=== PATIENT | male | born 1940 | race African-American/Black ===

== ENCOUNTER → 2020-07-22 | Outpatient (CLI) | payer OTHER, BC ==
[~2020-07-22] MED LIST: ACTOS15 MG PO; ADULT LOW DOSE81 MG PO; B-100 COMPLEX1 EAC1 PO; B-COMPLEX 100400 MC1 PO; COUMADIN 5 MG TA5 M1 PO; COUMADIN7.5 MG PO; FISH OIL 1,0001 EAC5 PO; FISHOIL PO; FUROSEMIDE PO; GARLIC OIL1 EAC1 PO; GLUCOPHAGE XR500 MG PO; GLYSET50 MG PO; IRON PO; LASIX 40 MG TAB40 M1 PO; LISINOPRIL40 MG PO; MULTAQ400 MG PO; MULTIVITAMINS PO; ODORLESS GARLI500 MG PO; SORINE 80 MG TA80 M1 PO; TOPROL XL50 MG PO; VITAMINC500 PO; VITCB500GO PO; ZOCOR40 MG PO
== END ==
LOC: RAD 15:40
PROVIDERS: ATTEND Internal Medicine
DX: J98.4 Other disorders of lung (principal); I51.7 Cardiomegaly; I50.41 Acute combined systolic (congestive) and diastolic (congestive) heart failure; I71.2 Thoracic aortic aneurysm, without rupture

== ENCOUNTER 2021-01-21 14:00 | Inpatient (IN) | payer OTHER, BC ==
[~2021-01-21] VITALS: Ht 177.8 cm; Wt 124.2 kg
--- NOTE | ~2021-01-21 | HC ---
[facility] [place] [address] CONSULTATION Name: DIMPLE ORTIZ Room #: 351-P ADM IN M.R.#: [id number] Admission: 01/21/21 Attend Phys: Trent Solomon MD Discharge: Date of : 39 Report #: [id number] THIS REPORT FOR: cc: [place] MD, Stanley P. MD Stephens, Thad A. MD ~ DATE OF SERVICE: 01/22/2021 WOUND CARE CONSULTATION PERSONAL PHYSICIAN: Dr. [place]. CHIEF COMPLAINT: Leg edema. HISTORY OF PRESENT ILLNESS: This is an 80-year-old black male who was admitted for congestive heart failure, who was noted to have significant lower extremity edema on admission. The patient states that the edema started approximately 1 month ago. We have been asked to see the patient to assist with control of the edema. The patient denies any associated open wounds. The patient denies any other recent illnesses or concerns. PAST MEDICAL HISTORY: Significant for atrial flutter, status post ablation for congestive heart failure, hyperlipidemia, hypothyroidism, coronary artery disease, type 2 diabetes, coronary artery bypass grafting x 5 back in 2001. Cataract surgery. CURRENT MEDICATIONS: Multiple, I reviewed the patient's medication list. DRUG ALLERGIES: None. SOCIAL HISTORY: The patient does not smoke or drink alcohol. FAMILY HISTORY: Not pertinent to current medical condition. REVIEW OF SYSTEMS: CONSTITUTIONAL: The patient denies fevers or chills. NEUROLOGIC: The patient has mild overall weakness, but no isolated weakness in arms or legs. EYES: No complaints. ENT: No complaints. CARDIAC: The patient has significant lower extremity edema, but no chest pain or palpitations. RESPIRATORY: The patient has dyspnea on exertion and orthopnea with slight cough. GASTROINTESTINAL: The patient denies nausea, vomiting, or abdominal pain. [facility] [address] [place] [address] CONSULTATION Name: DIMPLE ORTIZ Room #: 351-P [facility] IN [facility]#: [id number] Admission: 01/21/21 Attend Phys: Trent Solomon MD Discharge: Date of : 39 Report #: [id number] GENITOURINARY: The patient denies urgency or frequency. MUSCULOSKELETAL: No complaints. SKIN: The patient has no open ulcerations. PHYSICAL EXAMINATION: VITAL SIGNS: Temperature 36.6, pulse 48, respirations 18, BP 105/40. GENERAL: This is a pleasant black male who is in no obvious distress. HEENT: Normocephalic, atraumatic. Mucous membranes are somewhat dry. Pupils are round. Sclerae white. NECK: Supple, no obvious JVD. LUNGS: Diminished breath sounds heard throughout. HEART: Regular. ABDOMEN: Obese, soft, nontender. EXTREMITIES: The patient has 3+ edema bilateral lower extremities, the skin is otherwise intact. There is mild stasis dermatitis changes noted. There is no increased erythema, warmth or tenderness. No signs of cellulitis. Distal pulses are 1+. Bilateral heels are intact. NEUROLOGIC: Cranial nerves 2-12 grossly intact. Motor and sensory grossly intact. LABORATORY DATA: White count 4.7, hemoglobin 10.0, BUN 34, creatinine 3.3, albumin 3.0. IMPRESSION: 1. Chronic lower extremity edema consistent with venous insufficiency and congestive heart failure. 2. Acute exacerbation of congestive heart failure. 3. Diabetes mellitus. 4. Coronary artery disease. 5. Protein-calorie malnutrition - moderate, albumin 3.0. 6. Generalized debility. PLAN: We will start ___Tubigrip to the bilateral lower extremities. We have ordered arterial Dopplers to evaluate for underlying arterial disease given the patient has a history of coronary artery disease and bypass surgery. We will make sure we maximize the patient's oral protein supplementation for healing. We will utilize physical, occupational therapy for strengthening. We will continue all other current medications. We will continue to follow the patient. I appreciate the ability to consult. By: 1520 54 Paramjit Castañeda MD /nt
[2021-01-21 14:03] VITALS: BP 171/50
[2021-01-21] MEDS ORDERED: LEVO-T50 MCG PO (14:12)
[2021-01-21] MEDS ORDERED: ALLEGRA ALLERG180 MG PO (14:12)
[2021-01-21] MEDS ORDERED: PACERONE200 MG PO (14:13)
[2021-01-21] MEDS ORDERED: FUROSEMIDE 80 M80 M1 PO (14:13)
[2021-01-21] MEDS ORDERED: LIPITOR80 MG PO (14:13)
[2021-01-21] MEDS ORDERED: JANTOVEN2.5 MG PO (14:14)
[2021-01-21] MEDS ORDERED: LISINOPRIL5 MG PO (14:14)
[2021-01-21 14:38] LABS: ABSOLUTE NEUTROPHILS 4.1 thou/uL (1.4-8.2); BASOPHILS 0.8 % (0.0-2.0); EOSINOPHILS 4.3 % (0.0-3.0); HEMATOCRIT 34.3 % (42.0-52.0); LYMPHOCYTES 15.9 % (24.0-44.0); MCH 32.4 pg (26.0-34.0); MCHC 31.9 g/dL (28.0-37.0); MCV 101.3 fL (80.0-100.0); MONOCYTES 11.9 % (1.0-8.0); PLATELET COUNT 171 thou/uL (150-400); POLYS 67.1 % (36.0-66.0); RBC 3.39 mil/uL (4.50-6.00); RDW 14.5 % (10.5-14.5)
[2021-01-21 16:25] LABS: CALCIUM 8.8 mg/dL (8.5-10.1); CREATININE 3.3 mg/dL (0.7-1.3); POTASSIUM 4.2 mmol/L (3.5-5.1)
[2021-01-21 16:31] LABS: ALBUMIN 3.1 g/dL (3.4-5.0); TOTAL BILIRUBIN 0.5 mg/dL (0.2-1.0); TOTAL PROTEIN 6.8 g/dL (6.4-8.2)
[2021-01-21 17:11] VITALS: BP 171/50
--- NOTE | 2021-01-21 17:15 | EKG ---
[address] [place] [address] ELECTROCARDIOGRAM REPORT Name: DIMPLE ORTIZ Room #: [facility]#: [id number] Admission: 01/21/21 Attend Phys: Discharge: Date of : 38 Report #: [id number] [facility] Test Date: 2021-01-21 Test Time: 15:33:10 Pat Name: DIMPLE ORTIZ Department: Room: Gender: M Cook Seafood: MAT : 1940 Requested By: Alvaro Dorsey Order Number: [id number] MD: Hardeep Fraser Measurements Intervals [place] Rate: 69 P: 0 SD: 228 QRS: 50 QRSD: 102 T: 58 QT: 479 QTc: 514 Interpretive Statements Sinus rhythm Prolonged SD interval Borderline T wave abnormalities Prolonged QT interval Compared to ECG 05/22/2010 06:29:23 First degree AV block now present T-wave abnormality now present Prolonged QT interval now present Atrial premature complex(es) no longer present Electronically Signed On 01-21-2021 17:15:04 CDT by Hardeep Fraser [email or web address] <ELECTRONICALLY SIGNED> By: Hardeep Fraser MD, FAC 01/21/21 1715 1533 1533 Hardeep Fraser MD, [facility] /EPI
[2021-01-21 17:52] LABS: INR 3.7; PROTIME 38.3 Seconds (9.3-11.4)
[2021-01-21 18:12] LABS: FOLIC ACID 12.9 ng/mL (8.6-58.9)
[2021-01-21 18:15] LABS: % SATURATION 14 % (20-39); IRON 39 ug/dL (65-175); TIBC 279 ug/dL (250-450)
[2021-01-21 19:35] VITALS: BP 152/56
[2021-01-21 19:45] VITALS: BP 161/54
[2021-01-22 04:35] VITALS: BP 105/40
[2021-01-22 05:35] LABS: ABSOLUTE NEUTROPHILS 2.8 thou/uL (1.4-8.2); BASOPHILS 1.1 % (0.0-2.0); EOSINOPHILS 7.7 % (0.0-3.0); HEMATOCRIT 30.6 % (42.0-52.0); LYMPHOCYTES 20.5 % (24.0-44.0); MCHC 32.6 g/dL (28.0-37.0); MCV 101.2 fL (80.0-100.0); MONOCYTES 11.7 % (1.0-8.0); PLATELET COUNT 147 thou/uL (150-400); RBC 3.03 mil/uL (4.50-6.00); RDW 14.3 % (10.5-14.5); WBC 4.7 thou/uL (4.0-11.0)
[2021-01-22 05:51] LABS: CALCIUM 8.6 mg/dL (8.5-10.1); CREATININE 3.3 mg/dL (0.7-1.3); MAGNESIUM 2.2 mg/dL (1.8-2.4); PHOSPHORUS 3.7 mg/dL (2.5-4.9); POTASSIUM 3.9 mmol/L (3.5-5.1)
[2021-01-22 05:55] LABS: INR 3.8; PROTIME 38.5 Seconds (9.3-11.4)
--- NOTE | 2021-01-22 07:38 | NUR ---
PT ARRIVED TO UNIT APPROX 1944, ADMISSION AND ASSESSMENT COMPLETED. PT A&Ox4, PLEASANT BUT EASILY TEARFUL REPORTING HIS TWO YEARS AGO AND HE ONLY HAS HIS SON IN HIS LIFE. EASILY SOB AND FATIGUED WITH MINIMAL EXERTION, SATS WELL ON RA. HAS BEEN AFIB HR 50-60 OVERNIGHT. UTILIZING URINAL OVERNIGHT. NO OTHER CONCERNS, SHIFT REPORT GIVEN 0700.
--- NOTE | 2021-01-22 12:08 | 2DMMODE ---
[facility] [place] [address] 2 D/M-MODE ECHOCARDIOGRAM Name: DIMPLE ORTIZ Room #: 351-P ADM IN M.R.#: [id number] Admission: 01/21/21 Attend Phys: Trent Solomon MD Discharge: Date of : 39 Report #: [id number] THIS REPORT FOR: cc: [place] MD, Stanley P. MD Lammoglia, Francisco J. MD ~ APPROVED REPORT Study performed: 01/22/2021 11:23:44 EXAM: Comprehensive 2D, Doppler, and color-flow Echocardiogram Patient Location: Bedside Room #: [facility] Status: routine BSA: 2.36 HR: 60 bpm BP: 105/40 mmHg Rhythm: Sinus arrhythmia and PVCs Other Information Study Quality: Fair/not all measurements taken/foreshortened apicals Technically limited study due to morbid obesity. Indications Short of breath, cough, edema, CHF. Hx: CABG, CHF, PAF, HTN, COVID-19 (04/2020). 2D Dimensions IVSd: 10.87 (7-11mm) LVOT Diam: 21.30 (18-24mm) LVDd: 52.12 mm PWd: 10.68 (7-11mm) Ascending Ao: 30.25 (22-36mm) LVDs: 35.62 (25-40mm) Left Atrium: 44.59 (27-40mm) Aortic Root: 32.60 mm Aortic Valve AoV Peak Armond.: 1.22 m/s AO Peak Gr.: 5.96 mmHg LVOT Max P.44 mmHg LVOT Max V: 0.93 m/s DAMIEN Vmax: 2.70 cm2 Mitral Valve E/A Ratio: 1.[address] [facility] [address] [place] [address] 2 D/M-MODE ECHOCARDIOGRAM Name: DIMPLE ORTIZ Room #: 351-[facility] IN [facility].#: [id number] Admission: 01/21/21 Attend Phys: Trent Solomon MD Discharge: Date of : 39 Report #: [id number] MV Decel. Time: 239.57 ms MV E Max Armond.: 1.09 m/s MV A Armond.: 0.63 m/s MV PHT: 69.48 ms Pulmonary Valve PV Peak Armond.: 0.94 m/s PV Peak Gr.: 3.53 mmHg Pulmonary Vein P Vein S: 0.33 m/s P Vein D: 0.72 m/s P Vein S/D Ratio: 0.46 Tricuspid Valve TR Peak Armond.: 3.22 m/s RAP Estimate: 10.00 mmHg TR Peak Gr.: 42.00 mmHg PA Pressure: 52.00 mmHg Left Ventricle The left ventricle is normal size. There is normal LV segmental wall motion. There is normal left ventricular wall thickness. Left ventricular systolic function is normal. LVEF is 60-65%. Moderate diastolic dysfunction is present (pseudonormal filling). Right Ventricle The right ventricle is normal size. The right ventricular systolic function is normal. Atria Biatrial enlargement. Aortic Valve Aortic valve leaflets are mildly thickened and calcified. No aortic regurgitation is present. There is no aortic valvular stenosis. Mitral Valve The mitral valve is normal in structure. Mild mitral annular calcification. Moderate mitral regurgitation. Tricuspid Valve The tricuspid valve is normal in structure. Moderate to severe tricuspid regurgitation. Etimated PAP is 50-55mmHG. Pulmonic Valve Pulmonic valve is not well visualized. Trace pulmonic [facility] [address] [place] [address] 2 D/M-MODE ECHOCARDIOGRAM Name: DIMPLE ORTIZ Room #: 351-P [facility] IN .R.#: [id number] Admission: 01/21/21 Attend Phys: Trent Solomon MD Discharge: Date of : 39 Report #: [id number] regurgitation. Great Vessels The aortic root is normal in size. The ascending aorta is normal in size. IVC is dilated and collapses <50% with inspiration. Pericardium There is no pericardial effusion. <Conclusion> The left ventricle is normal size. Left ventricular systolic function is normal. LVEF is 60-65%. Biatrial enlargement. Aortic valve leaflets are mildly thickened and calcified. No aortic regurgitation is present. The mitral valve is normal in structure. Mild mitral annular calcification. Moderate mitral regurgitation. The tricuspid valve is normal in structure. Moderate to severe tricuspid regurgitation. Etimated PAP is 50-55mmHG. Pulmonic valve is not well visualized. Trace pulmonic regurgitation. There is no pericardial effusion. <ELECTRONICALLY SIGNED> By: Pérez Palomino MD 01/22/21 1208 120 120 Pérez Palomino MD /INF
--- NOTE | 2021-01-22 13:08 | EKG ---
[address] [place] [address] ELECTROCARDIOGRAM REPORT Name: DIMPLE ORTIZ Room #: 351-P ADM IN M.R.#: [id number] Admission: 01/21/21 Attend Phys: Trent Solomon MD Discharge: Date of : 39 Report #: [id number] [facility] Test Date: 2021-01-22 Test Time: 09:03:02 Pat Name: DIMPLE ORTIZ Department: Room: 351 P Gender: M Harvester Operator: JENNIFER : 1940 Requested By: Precious Campbell Order Number: [id number] MD: Hardeep Fraser Measurements Intervals [place] Rate: 59 P: -60 [place]: 226 QRS: 54 QRSD: 116 T: 69 QT: 556 QTc: 551 Interpretive Statements Sinus or ectopic atrial rhythm Sinus pause Prolonged [place] interval Nonspecific intraventricular conduction delay Compared to ECG 01/21/2021 15:33:10 Ectopic atrial rhythm now present Sinus pause or arrest now present Intraventricular conduction delay now present Sinus rhythm no longer present T-wave abnormality no longer present Prolonged QT interval no longer present Electronically Signed On 01-22-2021 13:08:42 CDT by Hardeep Fraser [email or web address] <ELECTRONICALLY SIGNED> By: Hardeep Fraser MD, FACC 01/22/21 1308 0903 0903 Hardeep Fraser MD, FAC /EPI
[2021-01-22 15:15] VITALS: BP 127/57
[2021-01-22 15:41] LABS: URINE BILIRUBIN NEGATIVE (Negative); URINE BLOOD NEGATIVE (Negative); URINE CLARITY CLEAR; URINE COLOR YELLOW; URINE GLUCOSE-RANDOM* NEGATIVE (Negative); URINE KETONES NEGATIVE (Negative); URINE LEUKOCYTES NEGATIVE (Negative); URINE NITRITE NEGATIVE (Negative); URINE PROTEIN (DIPSTICK) NEGATIVE (Negative); URINE SPECIFIC GRAVITY 1.015 (1.005-1.035); URINE UROBILINOGEN 0.2 E.U./dl (0.2-1.0)
[2021-01-22 15:49] LABS: PROT/CREAT RATIO 0.3; URINE CREATININE-RANDOM* 41.9 mg/dL; URINE PROTEIN-RANDOM* 13.7 mg/dL (<11.9)
--- NOTE | 2021-01-22 16:41 | NUR ---
INITIAL ASSESSMENT: Received consult for discharge planning. BECKY reviewed chart and spoke with nursing and attending physician. Pt was admitted from home due to CHF. Cardiology consulted. Pt with hx of COVID in May of 2020. No weekend discharge planned. BECKY met with pt and his son, Fabricio, at bedside. Introduced role of SW. Pt is alert/orientated x 4. Pt reports he lives at home alone. Prior to admission, pt was independent with ADLs. Pt has a walker to use. Pt has 1 step to enter the home. No steps inside. Stair glide in place to go down to the basement. Pt's son checks on pt daily. No hx of HH services or post-acute placement. Pt's PCP is Dr. [place]. Pt does have a nebulizer at home for breathing treatments. Pt and son are agreeable with HH at time of discharge if needed. PT/OT are working with pt. Pt had first COVID vaccine on 01/05. Pt's second shot is scheduled for . 01/25 at 1200. BECKY is following to assist as needed with discharge planning.
--- NOTE | 2021-01-22 19:28 | NUR ---
ASSUMED PATIENT CARE AT 0700. A/O X4. UP AD LIANNA IN ROOM. 2+ EDEMA BLE. PATIENT HAS DRY COUGH. WILL KEP MONITOR.
[2021-01-22 20:07] VITALS: BP 142/64
[2021-01-23 04:32] VITALS: BP 125/56
[2021-01-23 04:52] LABS: HEMATOCRIT 33.7 % (42.0-52.0); HEMOGLOBIN 10.8 gm/dL (14.0-18.0); MCH 32.4 pg (26.0-34.0); MCV 101.3 fL (80.0-100.0); RBC 3.33 mil/uL (4.50-6.00); RDW 14.8 % (10.5-14.5); WBC 3.8 thou/uL (4.0-11.0)
[2021-01-23 05:11] LABS: INR 3.2; PROTIME 32.6 Seconds (9.3-11.4)
[2021-01-23 05:46] LABS: CALCIUM 8.9 mg/dL (8.5-10.1); CREATININE 3.5 mg/dL (0.7-1.3); POTASSIUM 4.5 mmol/L (3.5-5.1)
[2021-01-23 07:51] VITALS: BP 120/53
[2021-01-23 11:50] LABS: ALBUMIN 3.2 g/dL (3.4-5.0); DIRECT BILIRUBIN 0.2 mg/dL (<0.1-0.2); TOTAL BILIRUBIN 0.6 mg/dL (0.2-1.0); TOTAL PROTEIN 7.2 g/dL (6.4-8.2)
--- NOTE | 2021-01-23 18:32 | NUR ---
NO CHANGE ON THIS SHIFT. SLOWLY TOWARDS POC GOALS.
[2021-01-23 20:21] VITALS: BP 109/50
--- NOTE | 2021-01-24 02:49 | NUR ---
PT PROGRESSING TOWARDS D/C GOALS. VSS AFEBRILE. DENIED PAIN. COUGH MEDICINE GIVEN AND LOZENGE FOR NO PRODUCTIVE COUGH. REFUSED TO GO BACK TO BED . SAT UP IN CHAIR ALL NIGHT. ENCOURAGED TO KEEP FEET ELEVATED AND REPOSITION POSSIBLE IN CHAIR.
[2021-01-24 03:44] LABS: INR 3.3; PROTIME 34.1 Seconds (9.3-11.4)
[2021-01-24 04:40] VITALS: BP 127/60
[2021-01-24 06:06] LABS: HAV IgM AB (ANTI-HAV IgM) Negative (Negative); HEPATITIS B SURFACE AG Negative (Negative); HEPATITIS C VIRUS AB <0.1 (0.0-0.9)
[2021-01-24 07:54] LABS: ALBUMIN 3.2 g/dL (3.4-5.0); CALCIUM 8.7 mg/dL (8.5-10.1); CREATININE 3.7 mg/dL (0.7-1.3); PHOSPHORUS 3.9 mg/dL (2.6-4.7); POTASSIUM 4.7 mmol/L (3.5-5.1)
[2021-01-24 08:23] VITALS: BP 117/56
[2021-01-24 11:56] VITALS: BP 105/50
[2021-01-24 17:02] VITALS: BP 103/36
--- NOTE | 2021-01-24 18:03 | NUR ---
PATIENT RESTING ON CHAIR. GENERLIZED EDEMA. NOT TOWARDS POC GOALS.
[2021-01-24 19:30] VITALS: BP 102/46
--- NOTE | 2021-01-24 22:15 | NUR ---
PT UP IN LOUNGE CHAIR. GENERALIZED EDEMA, OBESE. PT IS SLOW TO SPEAK, BLUNTED AFFECT. BLE TUBIGRIP INTACT. PT CALLS FOR ASSISTANCE WITH AMBULATION. LUNGS WITH WHEEZES.
[2021-01-25 04:19] VITALS: BP 110/54
[2021-01-25 06:06] LABS: ALBUMIN 3.2 g/dL (3.4-5.0); CALCIUM 8.8 mg/dL (8.5-10.1); CREATININE 3.7 mg/dL (0.7-1.3); PHOSPHORUS 4.8 mg/dL (2.5-4.9); POTASSIUM 4.5 mmol/L (3.5-5.1)
[2021-01-25 06:07] LABS: INR 2.8; PROTIME 28.9 Seconds (9.3-11.4)
[2021-01-25 07:08] VITALS: BP 102/55
[2021-01-25 11:03] VITALS: BP 113/46
--- NOTE | 2021-01-25 13:14 | NUR ---
CARE ASSUMED AT 0700, PT ALERT AND ORIENTED X4, UP IN THE CHAIR. DENIES ANY NEEDS AT MOMENT. TUBIGRIP ON PT BLE. GENERLAIZED EDEMA. PT DENIES ANY NEEDS AT THE MOMENT. PT SON VISITING MERLY, WILL CONTINUE TO MONITOR
[2021-01-25 15:02] VITALS: BP 129/61
--- NOTE | 2021-01-25 15:41 | NUR ---
SW reviewed chart and spoke with nursing and attending physician. Pt is progressing towards goals for discharge. Pt is on IV steroids. Pt has second COVID vaccine scheduled for tomorrow at 1200 [address] [facility] [address] [id number]. Pt will most likely not be ready for discharge tomorrow. BECKY discussed with attending physician and administration. Pt is able to leave for vaccine and then will return after vaccine. Pt's family will provide transportation. Patient Pass Agreement document will need to be signed by pt/family. Pt will return directly to his hospital room upon return. BECKY met with pt and son at bedside to provide update and discuss. Both pt and son verbalized understanding and are agreeable with plan. BECKY is following to assist as needed with discharge planning.
[2021-01-25 19:06] VITALS: BP 122/56
--- NOTE | 2021-01-25 19:43 | NUR ---
PT SITITNG UP IN CHAIR, PT ALSO SLEEPS IN CHAIR. OBESE, LUNGS WITH WHEEZES, CONTINUED GENERALIZED AND BLE EDEMA. BLUNTED AFFECT. PT HAS ORDER TO LEAVE FOR VACCINE TOMORROW AND PT HAPPY, PLANS ON LEAVING AROUND 10AM. PT MONITORING OWN FLUID RESTRICTION. CALLS FOR ASSISTANC WITH AMBULATION USES WALKER.
[2021-01-26 04:02] VITALS: BP 113/55
[2021-01-26 05:42] LABS: INR 2.4; PROTIME 25.1 Seconds (9.3-11.4)
[2021-01-26 05:50] LABS: ALBUMIN 3.1 g/dL (3.4-5.0); CALCIUM 8.6 mg/dL (8.5-10.1); CREATININE 3.6 mg/dL (0.7-1.3); PHOSPHORUS 4.6 mg/dL (2.6-4.7); POTASSIUM 4.6 mmol/L (3.5-5.1)
[2021-01-26 07:07] VITALS: BP 144/56
--- NOTE | 2021-01-26 10:27 | NUR ---
Note Given: Y Facility List Provided:Y Facility Jihan: None chosen at this time Lisseth Thomason NP discussed BPCI with this pt 01/25/21
--- NOTE | 2021-01-26 11:28 | NUR ---
1040 PT SON HERE TO TAKE PT TO GET HIS 2ND COVID VACCINE SHOT, OUTSIDE THE HOSPITAL. APPROVED BY DR. ARVIZU. ORDERS IN.
[2021-01-26 12:26] VITALS: BP 118/42
--- NOTE | 2021-01-26 12:59 | NUR ---
SW reviewed chart and spoke with nursing and attending physician. Pt is medically stable to be released from the hospital for a couple of hours to go receive his second COVID vaccine. Form signed by pt and placed on chart. SW met with pt and son to discuss plan. Pt's son to provide transportation and pt will return to his hospital room. BECKY is following to assist as needed with discharge planning.
[2021-01-26 15:21] VITALS: BP 118/57
[2021-01-26 19:04] VITALS: BP 112/47
--- NOTE | 2021-01-26 22:41 | NUR ---
PT SITTING IN LOUNGE CHAIR. SON VISITING. DISCUSSED HIS OUTING FOR SECOND SHOT. PT NOT SOA WITH CONVERSATION, GOOD EYE CONTACT, BLUNTED AFFECT. OBESE, GENERALIZED EDEMA. PT HAD HS SNACK. TUBI AIRPLANE NAVIGATOR BLE INTACT.
[2021-01-27 04:08] VITALS: BP 110/57
[2021-01-27 08:45] VITALS: BP 118/50
[2021-01-27 10:17] LABS: ALBUMIN 3.1 g/dL (3.4-5.0); CALCIUM 8.4 mg/dL (8.5-10.1); CREATININE 3.8 mg/dL (0.7-1.3); PHOSPHORUS 5.4 mg/dL (2.6-4.7); POTASSIUM 4.4 mmol/L (3.5-5.1)
[2021-01-27 11:16] VITALS: BP 114/50
[2021-01-27 11:22] LABS: INR 2.4; PROTIME 25.5 Seconds (9.3-11.4)
[2021-01-27 12:15] LABS: HEMATOCRIT 34.6 % (42.0-52.0); HEMOGLOBIN 11.1 gm/dL (14.0-18.0)
--- NOTE | 2021-01-27 13:31 | NUR ---
PT UP IN CHAIR, PT ALERT AND ORIENTED X4. PT DENIES ANY CHEST PAIN, NAUSEA AND VOMITTING. PT STATED THERE WAS SOME BLOOD IN HIS STOOL, MADE DR. SOLORIO AWARE. NEW ORDERS IN. ASSESSMENT COPMPLETED. FALL PRECAUTIONS IN PLACE. WILL CONTINUE TO MONITOR
[2021-01-27 15:32] VITALS: BP 117/57
[2021-01-27 19:18] VITALS: BP 106/48
[2021-01-28 04:10] VITALS: BP 110/53
[2021-01-28 05:47] LABS: HEMATOCRIT 34.2 % (42.0-52.0); HEMOGLOBIN 10.9 gm/dL (14.0-18.0)
[2021-01-28 06:10] LABS: INR 2.9; PROTIME 29.9 Seconds (9.3-11.4)
--- NOTE | 2021-01-28 06:15 | NUR ---
PT NOTED TO BE IN AFIB. HEART RATE 40-50'S THROUGHOUT THE NIGHT. HS AMIODARONE AND PROPANOLOL HELD DUE TO LOW HEART RATE. WILL REASSESS WHEN NEXT DOSE DUE.
[2021-01-28 06:32] LABS: ALBUMIN 2.9 g/dL (3.4-5.0); CALCIUM 8.3 mg/dL (8.5-10.1); CREATININE 3.8 mg/dL (0.7-1.3); PHOSPHORUS 4.8 mg/dL (2.5-4.9); POTASSIUM 4.3 mmol/L (3.5-5.1)
[2021-01-28 07:40] VITALS: BP 105/58
--- NOTE | 2021-01-28 09:25 | NUR ---
BPCI LETTER LEFT WITH CHART, UNABLE TO SPEAK WITH PATIENT. NURSING AWARE THIS IS ON CHART FOR DISCHARGE.
--- NOTE | 2021-01-28 09:56 | NUR ---
Nutrition: pt admit w/ SOB, CHF exacerbation, CKD. Seen for LOS. PO intake fair/good, 50-90% of meals on 2 gm Na diet. Pt with hx DM, CABG, HLD, HTN, COVID. BG 70-254. Will add carb controlled to diet order. Negative fluid balance on torsemide. No weight since admission. Initial weight BMI 39, obesity class 2. RD completed low sodium education with pt due to comments he frequently eats convenience foods and does not cook. See education log for details. Low nutrition risk.
[2021-01-28] MEDS ORDERED: PROPRANOLOL 1010 MG PO (10:16)
[2021-01-28] MEDS ORDERED: GLUCOTROL5 MG PO (10:17)
[2021-01-28] MEDS ORDERED: ANUCORT-HC25 MG RECTAL (10:18)
[2021-01-28] MEDS ORDERED: MEDROL4 M1 PO (10:38)
[2021-01-28] MEDS ORDERED: JANTOVEN2.5 MG PO (10:38)
[2021-01-28 10:55] VITALS: BP 105/58
[2021-01-28] MEDS ORDERED: PRANDIN1 MG PO (11:05)
[2021-01-28] MEDS ORDERED: PRECOSE 25 MG25 M1 PO (11:05)
[2021-01-28] MEDS ORDERED: TORSEMIDE20 MG PO (11:06)
[2021-01-28 11:32] VITALS: BP 132/85
--- NOTE | 2021-01-28 11:33 | NUR ---
DISCHARGE NOTE: SW reviewed chart and spoke with nursing and attending physician. Pt is medically stable for discharge home today. Orders written for HH services. SW met with pt at bedside to discuss discharge. Pt is aware and in agreement with discharge plan. Options provided for HH agencies. No preference voiced. SW confirmed pt's home address and phone number. SW faxed referral and finalized discharge orders/summary to [facility]. Notified liaison of new referral. [facility] is able to accept pt on service. Contact info for HH placed in pt's discharge summary. Pt's son will provide transportation home. No additional SW needs identified at this time, but is available to assist should needs arise.
== END 2021-01-28 15:04 | disposition home health service (06) | DRG 682 ==
LOC: ER 14:00 → 3W 19:08 → EROBS 19:08 → 3W 19:41
PROVIDERS: Hospitalist; Internal Medicine; Internal Medicine Nephrology; Nurse Practitioner; Physician Assistant; ADMIT Hospitalist; ATTEND Hospitalist
DX: N17.0 Acute kidney failure with tubular necrosis (principal); I50.31 Acute diastolic (congestive) heart failure; E44.0 Moderate protein-calorie malnutrition; I48.92 Unspecified atrial flutter; J98.11 Atelectasis; I13.0 Hypertensive heart and chronic kidney disease with heart failure and stage 1 through stage 4 chronic kidney disease, or unspecified chronic kidney disease; D64.9 Anemia, unspecified; Z20.822 Contact with and (suspected) exposure to COVID-19; N18.9 Chronic kidney disease, unspecified; E78.5 Hyperlipidemia, unspecified; I25.10 Atherosclerotic heart disease of native coronary artery without angina pectoris; R53.81 Other malaise; E03.9 Hypothyroidism, unspecified; E66.9 Obesity, unspecified; Z66 Do not resuscitate; I87.2 Venous insufficiency (chronic) (peripheral); I48.0 Paroxysmal atrial fibrillation; E11.22 Type 2 diabetes mellitus with diabetic chronic kidney disease; D72.10 Eosinophilia, unspecified; I27.20 Pulmonary hypertension, unspecified; E11.51 Type 2 diabetes mellitus with diabetic peripheral angiopathy without gangrene; I34.0 Nonrheumatic mitral (valve) insufficiency; Z95.1 Presence of aortocoronary bypass graft; Z86.16 Personal history of COVID-19; Z98.49 Cataract extraction status, unspecified eye; Z68.39 Body mass index [BMI] 39.0-39.9, adult; Z79.82 Long term (current) use of aspirin; Z79.899 Other long term (current) drug therapy; Z79.01 Long term (current) use of anticoagulants
CPT/HCPCS: 10879

== ENCOUNTER 2021-02-03 10:52 | Inpatient (IN) | payer OTHER, BC ==
[~2021-02-03] VITALS: Ht 177.8 cm; Wt 124.1 kg
[2021-02-03] VITALS (16 sets, daily range): BP systolic 79–194; BP diastolic 29–89
--- NOTE | ~2021-02-03 | HC ---
[facility] [place] [address] CONSULTATION Name: DIMPLE ORTIZ Room #: 247-P ADM IN M.R.#: [id number] Admission: 02/03/21 Attend Phys: Joshua Eden MD Discharge: Date of : 39 Report #: [id number] THIS REPORT FOR: cc: [place] MD, Stanley P. MD Khosla, Parveen K. MD ~ DATE OF SERVICE: 02/08/2021 HISTORY OF PRESENT ILLNESS: This is an 80-year-old male patient who is unable to provide any history at all. I reviewed the patient's records and it looks like the patient has numerous medical problems and he came here for increasing generalized weakness and confusion. REVIEW OF SYSTEMS: Indicate the patient has a history of hypertension, hyperlipidemia, diabetes, history of atrial flutter status post cardioversion, coronary artery disease, heart failure and he had COVID in 2019. He was progressively getting confused even from the last discharge. At one time, looks like his blood sugar was found to be in 30s. The patient's 14-point review of systems is from the records, there is a history of hypothyroidism, but his TSH is normal. He is on anticoagulation and in fact his last protime was 42.8. I suspect that is because of his atrial fibrillation. He has renal failure which apparently occurred because of COVID. His GFR is very low. Nephrology is following this patient. It looks like from the record, he has refused life support measure last time and has requested to go home. This is his relevant 14-point review of system. PAST MEDICAL HISTORY: Looks like is positive for atrial flutter. FAMILY HISTORY: Unavailable. SOCIAL HISTORY: He has a son. We will try to reach him. PHYSICAL EXAMINATION: Pretty limited. He is sleepy. He does not wake up, he does not follow commands. Sometime he will open his eyes, but he does not move anything. His reflexes could not be elicited. He does not appear to have any meningeal sign. His fundus could not be visualized. His respiratory examination looks like an unusual breathing, pulse is 57, temperature is 97.1. LABORATORY DATA: His last platelet count is only 60, hemoglobin is 8.7. He did have a CT scan of the head, which shows chronic changes. IMPRESSION: There are numerous things which can be causing encephalopathy in this patient. 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 He has [facility] [address] [place] [address] CONSULTATION Name: DIMPLE ORTIZ Room #: 247-P [facility] IN [facility].#: [id number] Admission: 02/03/21 Attend Phys: Joshua Eden MD Discharge: Date of : 39 Report #: [id number] hypoglycemia which can cause encephalopathy. He has renal problem and his mentation was progressively going down and that probably is contributing to his encephalopathy. I do not know what his baseline mental status was even prior to all this happening. I think we need to find out from the son. RECOMMENDATIONS: I will suggest talking to the son to see how aggressive they want to be. I did order an EEG. Next step will be getting an MRI of the brain done and if they still want to be aggressive, spinal tap can be done, but that is going to be an involved procedure because the patient is on Coumadin and his platelet count is low, chances of treatable BRAID FOLDER pathology is less likely. Thank you very much for this referral and I will discuss this patient with you tomorrow. By: 185 30 Sunny Gold MD /nt
[~2021-02-03 10:52] MED LIST changes: +ALLEGRA ALLERG180 MG PO; +ANUCORT-HC25 MG RECTAL; +FUROSEMIDE 80 M80 M1 PO; +GLUCOTROL5 MG PO; +JANTOVEN2.5 MG PO; +LEVO-T50 MCG PO; +LIPITOR80 MG PO; +LISINOPRIL5 MG PO; +MEDROL4 M1 PO; +PACERONE200 MG PO; +PRANDIN1 MG PO; +PRECOSE 25 MG25 M1 PO; +PROPRANOLOL 1010 MG PO; +TORSEMIDE20 MG PO
[2021-02-03 11:51] LABS: BE(vivo) -2.2 mmol/L (-2 to +3); HCO3 21.8 mmol/L (22.0-26.0); PCO2 34.9 mmHg (35.0-45.0); PO2 83.7 mmHg (80.0-100.0); pH 7.414 (7.360-7.450); sO2 96.5 % (92.0-98.0)
[2021-02-03 13:51] LABS: ABSOLUTE NEUTROPHILS 14.9 thou/uL (1.4-8.2); BASOPHILS 0.2 % (0.0-2.0); EOSINOPHILS 0.1 % (0.0-3.0); HEMATOCRIT 32.9 % (42.0-52.0); HEMOGLOBIN 10.5 gm/dL (14.0-18.0); LYMPHOCYTES 3.1 % (24.0-44.0); MCH 32.2 pg (26.0-34.0); MCV 100.4 fL (80.0-100.0); MONOCYTES 6.5 % (1.0-8.0); POLYS 90.1 % (36.0-66.0); RBC 3.27 mil/uL (4.50-6.00); RDW 14.8 % (10.5-14.5); WBC 16.5 thou/uL (4.0-11.0)
--- NOTE | 2021-02-03 14:13 | NUR ---
PT. WITH DECREASE IN LOC. ACCUCHECK OBTAINED=55, ONE AMP. OF D50 IVP PROVIDED ORDERED BY GIA OROPEZA. PT. BP=91/44. PT. WITH 0.9NS INFUSING OF 250ML BOLUS. PT. WAKING AFTER RECEIVING AMP. OF D5O IVP. PT. PROVIDED A MEAL AND JUICE TO DRINK. WILL CONT. TO MONITOR CLOSELY
--- NOTE | 2021-02-03 14:33 | EKG ---
[place] [address] [place] [address] ELECTROCARDIOGRAM REPORT Name: DIMPLE ORTIZ Room #: [facility]#: [id number] Admission: 02/03/21 Attend Phys: Discharge: Date of : 38 Report #: [id number] [facility] ED Test Date: 2021-02-03 Test Time: 11:48:29 Pat Name: DIMPLE ORTIZ Department: Room: Gender: M Metallurgical Specialist: maxwell : 1940 Requested By: Alvaro Dorsey Order Number: [id number] MD: Geo Faria Measurements Intervals [facility] Rate: 69 P: 0 FL: 220 QRS: 30 QRSD: 100 T: 19 QT: 431 QTc: 462 Interpretive Statements Sinus rhythm Prolonged [place] interval Compared to ECG 01/22/2021 09:03:02 No significant change was found Electronically Signed On 02-03-2021 14:33:47 CDT by Geo Faria [email or web address] <ELECTRONICALLY SIGNED> By: Geo Faria MD, [facility] 02/03/21 1433 1148 1148 Geo Faria MD, FACC /EPI
[2021-02-03 14:45] LABS: CALCIUM 7.8 mg/dL (8.5-10.1); POTASSIUM 4.3 mmol/L (3.5-5.1)
[2021-02-03 14:51] LABS: ALBUMIN 2.1 g/dL (3.4-5.0); TOTAL BILIRUBIN 0.7 mg/dL (0.2-1.0)
[2021-02-03 14:55] LABS: PROTIME > 90.0 Seconds (9.3-11.4)
[2021-02-03 14:56] LABS: INR 13.99
--- NOTE | 2021-02-03 15:00 | NUR ---
PT. PROVIDED MEDICATION ORDERED. SCANNED IN LATE MEDICAL SITUATION WARRANTED EMERGENT ADMINISTRATION. PT. GIVEN 250ML .9NS FROM 250ML BAG, NOT 500ML.
[2021-02-03 15:11] LABS: PLATELET COUNT 104 thou/uL (150-400)
[2021-02-03 15:12] LABS: ANISOCYTOSIS 2+; LARGE PLATELETS RARE; OVALOCYTES FEW; SCHISTOCYTES FEW; TARGET CELLS FEW
[2021-02-03 15:23] LABS: URINE BILIRUBIN NEGATIVE (Negative); URINE BLOOD 3+ (Negative); URINE CLARITY SL CLOUDY; URINE COLOR YELLOW; URINE GLUCOSE-RANDOM* NEGATIVE (Negative); URINE KETONES NEGATIVE (Negative); URINE LEUKOCYTES-REFLEX NEGATIVE (Negative); URINE NITRITE-REFLEX NEGATIVE (Negative); URINE PROTEIN (DIPSTICK) TRACE (Negative); URINE UROBILINOGEN 0.2 E.U./dl (0.2-1.0)
[2021-02-03 15:40] LABS: SQUAMOUS 4-10 Moderate /LPF (0-3)
[2021-02-03 15:41] LABS: HYALINE CASTS 0-3 Few /LPF (None Seen); URINE RBC >20 Many /HPF (0-2); URINE WBC-REFLEX 0-5 Rare /HPF (0-5)
[2021-02-03 15:42] LABS: BACTERIA-REFLEX 1-9 Few /HPF (None Seen); CRYSTALS None Seen /LPF (None Seen)
--- NOTE | 2021-02-03 16:50 | NUR ---
VAT consulted for PICC, pt has INR of 13.99 and and plateletes of 104. Pt has CRF. Spoke with Yue MAGANA, regarding pt needs CVAD, but VAT will not be able to place due to pt's current labs
[2021-02-03] MEDS ORDERED: LISINOPRIL10 MG PO (21:04)
[2021-02-03] MEDS ORDERED: FUROSEMIDE 40 M40 MG PO (21:06)
[2021-02-03] MEDS ORDERED: REPAGLINIDE1 MG PO (21:07)
[2021-02-03] MEDS ORDERED: ACARBOSE25 MG PO (21:08)
[2021-02-03] MEDS ORDERED: WARFARIN SODIUM5 MG PO (21:09)
--- NOTE | 2021-02-03 21:51 | NUR ---
UNABLE TO EDIT OR DOCUMENT ON ER BLOOD TRANSFUSION DOCUMENTATION, UNIT1 OF FFP FINISHED AT 2130, 10CC OF NS INFUSED, VS: HR 65, RR 16, BP: 84/31 (53), 02 99% TEMP 98.5.ALL OF THIS COMMUNICATED TO TEACHER VOCAL RECORDS ANALYST BRENDA, WILL NOT BE WORKING UP FOR TRANSFUSION REACTION AT THIS TIME.
--- NOTE | 2021-02-03 22:26 | NUR ---
DISCUSSION WITH BRENDA MAGANA REGARDING PT STATUS, BLADDER SPASMS WITH URINE LEAKING, URINE BRIGHT RED, NO CLOTS VISUALIZED, BP DROPPING, ON LEVO, TO GIVE SECOND UNIT FFP. DISCUSSION OF PT EXPRESSION OF "I DON'T HAVE THE WILL TO LIVE AFTER MY ."
[2021-02-04] VITALS (67 sets, daily range): BP systolic 89–157; BP diastolic 26–56
--- NOTE | 2021-02-04 00:05 | NUR ---
DR. JUDGE CONSULT CALLED, GAVE SBAR FORMAT, WAS TOLD TO NOT GIVE ANY MORE FLUIDS, STOP THE MAINTENANCE FLUIDS AND GIVE 50 ML OF ALBUMIN. KEEP PRESSORS RUNNING AND DO NOT CALL LOW URINE OUTPUT.
--- NOTE | 2021-02-04 05:39 | NUR ---
URINE COLOR MORE ORANGE, RED/BLOOD CLEARING UP, IMPROVED OUTPUT. BP IMPROVING, PT VERY TEARFUL AND RECOUNTING MANY STORIES ABOUT HIS , STATING "IM JUST LOST WITHOUT HER." DISCUSSED PT WISHES REGARDING AGGRESSIVE CARE VS LESS AGGRESSIVE METHODS, PT STATES HE IS MISERABLE AND DOESN'T WANT TO LIVE LIKE THIS, BUT HIS SON WANTS HIM TO KEEP TRYING TO GET BETTER.
[2021-02-04 05:40] LABS: APTT 50.6 Seconds (24.5-32.8); PROTIME 26.6 Seconds (9.3-11.4)
[2021-02-04 05:44] LABS: INR 2.55
[2021-02-04 05:48] LABS: ABSOLUTE NEUTROPHILS 13.1 thou/uL (1.4-8.2); BASOPHILS 0.2 % (0.0-2.0); EOSINOPHILS 0.1 % (0.0-3.0); HEMATOCRIT 23.4 % (42.0-52.0); LYMPHOCYTES 6.4 % (24.0-44.0); MCH 31.9 pg (26.0-34.0); MCHC 31.9 g/dL (28.0-37.0); MCV 100.2 fL (80.0-100.0); MONOCYTES 10.9 % (1.0-8.0); PLATELET COUNT 74 thou/uL (150-400); POLYS 82.4 % (36.0-66.0); RBC 2.34 mil/uL (4.50-6.00); RDW 14.5 % (10.5-14.5); WBC 15.9 thou/uL (4.0-11.0)
[2021-02-04 05:55] LABS: CALCIUM 8.2 mg/dL (8.5-10.1); CREATININE 4.6 mg/dL (0.7-1.3); MAGNESIUM 2.5 mg/dL (1.8-2.4); POTASSIUM 4.4 mmol/L (3.5-5.1)
[2021-02-04 06:13] LABS: HEMOGLOBIN 7.5 gm/dL (14.0-18.0)
--- NOTE | 2021-02-04 11:40 | NUR ---
1140- NOTIFIE BY ED, SON ANGEL WANTS TO VISIT, PT IS OFF OF ISOLATION OKAY WITH SON VISITING. RN ALLOWING SON TO COME INTO THE ROOM
--- NOTE | 2021-02-04 12:46 | NUR ---
PT IS NOT PROGRESSING TOWARDS DISCHARGE AT THIS TIME, OVERNIGHT ISSUE WITH PT RAMIREZ CAME UP, UROLOGY WAS CONSULTED AND SEEN, ANOTHER WAS INSERTED BUT WAS WITHDRAWN DUE TO QUESTIONABLE PLACEMENT, RENAL TEAM ORDERED LASIX 80 TID AND CONITNUING TO GIVE ALBUTEIN FOR THE PT. PT NOW HAS EXTERNAL CONDOM CATH AND LASIX WILL BE GIVEN PER ORDER. CENTRAL LINE IS BEING PLACED ON THE PT WELL. PALLIATIVE CONSULT WAS PLACED PER PT'S REQUEST AND MAY SEE THE PT TODAY. CONTINUING BACK PX IS PROBLEMATIC FOR THE PT, FENTANYL 50MCG Q2H IS BEING GIVEN, PT IS SEEN SLEEPING BUT AWAKEN INTERMITTENTLY DUE TO PAIN. WILL HAVE TO COMMUNICATE WITH HOSPITALIST REGARDING VOUCHER EXAMINER PUMP.
--- NOTE | 2021-02-04 13:40 | NUR ---
DR. ACOSTA IN TO SEE. PT CONT'S TO HAVE SEVERE BACK SPASMS W/O RELIEF FROM FENTANYL. SEE ORDER.--VW
--- NOTE | 2021-02-04 15:06 | NUR ---
ORDER FOR CENTRAL LINE PLACEMENT NOTED- PLT AND INR LEVELS HAVE IMPROVED. DISCUSSED BLEEDING RISK WITH THE PATIENT AND SON WELL RISKS AND BENIFITS AND THEY VERBALIZED UNDERSTANDING. THE RIGHT JUGULAR VEIN WAS WIDLEY PATENT. A #6F TRIPLE LUMEN CENTRAL LINE WAS PLACED PER HOSPITAL POLICY AFTER A BEDSIDE TIMEOUT WAS COMPLETED. THE 25CM LINE WAS 25CM AND ADVANCED WITHOUT DIFFICULTY. A STAT CHEST XRAY SHOWS LINE AT MID SVC AND IN PROPER POSITION FOR USE. MARKET DIRECTOR NOTIFIED LINE RELEASED FOR USE
--- NOTE | 2021-02-04 15:12 | HC ---
[facility] [place] [address] CONSULTATION Name: DIMPLE ORTIZ Room #: 247-P ADM IN M.R.#: [id number] Admission: 02/03/21 Attend Phys: Joshua Eden MD Discharge: Date of : 39 Report #: [id number] THIS REPORT FOR: cc: [place] MD, Stanley P. MD Barry, Joseph W. MD ~ DATE OF SERVICE: 02/04/2021 INFECTIOUS DISEASE CONSULTATION ATTENDING PHYSICIAN: Dr. Joshua Eden. REASON FOR EVALUATION: Gram-positive cocci septicemia. HISTORY OF PRESENT ILLNESS: Chart reviewed, patient examined. This is an 80-year-old gentleman with diabetes mellitus that has been complicated by vasculopathy, has known cardiomyopathy, recently hospitalized with congestive failure, who presented with severe lumbar pain. On further evaluation, he was found to be quite weak. He had fallen, which he attributes more to his legs than any sort of OUTSIDE DELIVERER-related problem. He did notice chills, although was uncertain about any fevers. Note that he has had poor p.o. intake, although this has been a chronic thing dating back at least 2 years around the time of his 's . As part of the initial evaluation, blood cultures were collected, now 2/2 with growth of gram-positive cocci. Chest x-ray showed some chronic changes. ABGs: pH 7.414, pCO2 of 34.9 on 1.5 liters, oxygen 83.7. CT of the head was unremarkable. Electrolytes: Sodium 137, potassium 4.3, chloride 103, bicarbonate 25, anion gap of 9, BUN and creatinine 82 and 4.0, glucose of 173. AST of 86, ALT 88. Albumin of 2.1, total protein 5.0, lactic acid initially 2.7. TSH 1.612. BNP of 3842. Urinalysis was fairly unremarkable. CT abdomen and pelvis showed evidence of gallstones, although no active inflammatory signs. As described above, blood cultures show gram-positive cocci. He was empirically started on therapy with Zosyn and vancomycin. ALLERGIES: None known. MEDICATIONS: Include furosemide, Zosyn, fentanyl, and vancomycin. PAST MEDICAL HISTORY: Cardiomyopathy with history of congestive heart failure, coronary artery disease, diabetes mellitus type 2, atrial flutter with ablation, previous aortocoronary bypass grafting, previous COVID 04/2020. SOCIAL HISTORY: Nonsmoker, no ethanol, no illicit drug use. FAMILY HISTORY: Noncontributory. [address] [address] CONSULTATION Name: DIMPLE ORTIZ Room #: 247-P [facility] IN [facility]#: [id number] Admission: 02/03/21 Attend Phys: Joshua Eden MD Discharge: Date of : 39 Report #: [id number] REVIEW OF SYSTEMS: Otherwise, unremarkable. PHYSICAL EXAMINATION: GENERAL: Eibrajyb-ww-[id number] distress secondary to the back pain. He appears somewhat chronically ill, undernourished. He is generally lucid. VITAL SIGNS: Temperature 97.7, pulse 60, respirations 20, and blood pressure 121/45. SKIN: Warm, dry, no rashes. HEENT: Normocephalic. Extraocular muscles intact. NECK: Supple. LUNGS: Diminished breath sounds, otherwise clear. HEART: Regular. Borderline bradycardic. I do not appreciate a murmur. ABDOMEN: Not percussibly tender. There are no peritoneal signs. GENITOURINARY AND RECTAL: Deferred. LABORATORY DATA: CBC from this morning, white count of 15.9, H and H 7.5 and 23.4, platelets of 74. Electrolytes: Sodium 137, potassium 4.4, chloride 102, bicarbonate is 24, anion gap of 11, BUN and creatinine 84 and 4.6, glucose of 238. Estimated GFR of 15. PT of 26.6, INR of 2.55. Blood cultures as described above, gram-positive cocci 2/2. ASSESSMENT AND PLAN: Septicemia, suspect Staph or strep etiology, likely the former. We will continue therapy with the vancomycin. We will discontinue the Zosyn perhaps in the next 1-2 days due to concern about possible worsening renal failure. It has been brought to my attention that he may favor palliative care. I would be concerned about a lumbar spine infection, either diskitis, osteo, or perhaps an epidural abscess, would best be evaluated with MRI, although he is unable due to the severe nature of his pain to undergo that. I did speak with him about that. We will see how he does clinically over the next 24-48 hours and see what his decision is. <ELECTRONICALLY SIGNED> By: Isac Gutierrez MD 02/04/21 1512 1410 1437 Isac Gutierrez MD /nt
[2021-02-05] VITALS (33 sets, daily range): BP systolic 82–180; BP diastolic 29–73
--- NOTE | 2021-02-05 04:50 | NUR ---
RESTING QUIETLY FOR MUCH OF SHIFT, STATES PAIN IS BETTER AND "I FEEL BETTER TODAY." STILL HAVING BACK SPASMS BUT MORE INFREQUENTLY. JUNCTIONAL RHYTHM, BP STABLE OFF LEVOPHED.
[2021-02-05 06:26] LABS: MCH 32.6 pg (26.0-34.0)
[2021-02-05 06:27] LABS: MCHC 32.4 g/dL (28.0-37.0); MCV 100.6 fL (80.0-100.0); RBC 1.75 mil/uL (4.50-6.00); RDW 14.4 % (10.5-14.5)
[2021-02-05 06:35] LABS: HEMOGLOBIN 5.7 gm/dL (14.0-18.0)
[2021-02-05 06:36] LABS: HEMATOCRIT 17.6 % (42.0-52.0)
[2021-02-05 06:42] LABS: ALBUMIN 3.8 g/dL (3.4-5.0); CALCIUM 8.3 mg/dL (8.5-10.1); CREATININE 4.3 mg/dL (0.7-1.3); PHOSPHORUS 4.9 mg/dL (2.6-4.7); POTASSIUM 3.9 mmol/L (3.5-5.1)
--- NOTE | 2021-02-05 07:15 | NUR ---
called Dr. Eden re hemmoglobin 5.7 Rechecking lab repeat lab also 5.7 orders recieved for blood from Dr. Eden however pt refusing all treatments and test. States he just wants water and pain meds. Dr. Eden agreed and wants me to talk to [facility] regarding Hospice.
[2021-02-05 08:10] LABS: INR 2.8; PROTIME 28.5 Seconds (9.3-11.4)
[2021-02-05 08:19] LABS: HEMATOCRIT 17.6 % (42.0-52.0); HEMOGLOBIN 5.7 gm/dL (14.0-18.0)
--- NOTE | 2021-02-05 09:19 | NUR ---
Note Given: Y Facility List Provided:Y Facility Jihan: None chosen at this time Lisseth Thomason NP discussed BPCI with this pt 02/04/2021
--- NOTE | 2021-02-05 11:00 | NUR ---
Pt son is here. He wants his Father to keep on fighting. Emotional support given. Dr. Cook paged to talk with pt and family.
--- NOTE | 2021-02-05 11:15 | NUR ---
Dr. Eden called re pt wanting pain meds but it has only been an hour. states OK to give hydromorphone hourly.
--- NOTE | 2021-02-05 17:10 | NUR ---
dr vann spoke with pt and son, not wanting hospice at this time. wanting skilled rehab. cm team provided list for pt and son options. will send out referral when pt and family pick facility. no weekend dc, possible dc early next week.
[2021-02-05 20:20] LABS: HEMATOCRIT 23.5 % (42.0-52.0)
[2021-02-05 20:24] LABS: HEMOGLOBIN 7.7 gm/dL (14.0-18.0)
[2021-02-06] VITALS (23 sets, daily range): BP systolic 112–149; BP diastolic 40–65
[2021-02-06 05:34] LABS: HEMATOCRIT 21.4 % (42.0-52.0); HEMOGLOBIN 7.3 gm/dL (14.0-18.0); MCH 32.9 pg (26.0-34.0); MCHC 33.9 g/dL (28.0-37.0); MCV 96.9 fL (80.0-100.0); RBC 2.21 mil/uL (4.50-6.00); RDW 16.1 % (10.5-14.5); WBC 10.1 thou/uL (4.0-11.0)
[2021-02-06 05:43] LABS: ALBUMIN 3.8 g/dL (3.4-5.0); CALCIUM 8.6 mg/dL (8.5-10.1); CREATININE 4.2 mg/dL (0.7-1.3); PHOSPHORUS 4.8 mg/dL (2.6-4.7); POTASSIUM 4.1 mmol/L (3.5-5.1)
--- NOTE | 2021-02-06 05:56 | NUR ---
RESTING QUIETLY FOR MOST OF SHIFT, L ARM WRAPPED WITH SOME RELIEF, RA-1L WHILE SLEEPING, URINE OUTPUT IMPROVING, PT STILL TEARFUL WITH DESPONDANT AFFECT, BUT IS MORE INTERACTIVE WITH THIS RN, ASKING QUESTIONS AND SEEMS MORE ENGAGED.
--- NOTE | 2021-02-06 19:14 | NUR ---
PT IS NOT PROGRESSING TOWARDS DISCHARGE AT THIS TIME, PT SEEN BY PT/OT WAS ABLE TO GET SOME WORKUP AND BASELINE ASSESSMENT, HYDROCODONE WAS GIVEN THROUGHOUT THE DAY, WAS NOT SUFFICIENT. HYDROMORPHONE AND BACLOFEN ADDED ON TO TREATMENT. PT BETTER ABLE TO REST WITH BACLOFEN, DILAUDID WAS NOT GIVEN TODAY. DIET WAS ALSO STARTED TODAY WELL, CLEAR LIQ W/ ENSURE SUPPLEMENTS. PT ENJOYS JELLO QUITE MUCH. LASIX COTNINUING TO BE ADMINISTERED. PT SON BY BEDSIDE TODAY WISHES TO BE CALLED BY . L ARM IS HEALING, WILL DO DRESSING CHANGE TOMORROW PER 'S REQUEST. MRI MONDAY WILL BE DIAGNOSTIC FOR THE PT. RN SIGNING OFF
[2021-02-07] VITALS (42 sets, daily range): BP systolic 84–165; BP diastolic 38–84
[2021-02-07 04:47] LABS: ABSOLUTE NEUTROPHILS 6.2 thou/uL (1.4-8.2); BASOPHILS 0.3 % (0.0-2.0); HEMOGLOBIN 6.5 gm/dL (14.0-18.0); MONOCYTES 6.8 % (1.0-8.0); RBC 2.02 mil/uL (4.50-6.00)
[2021-02-07 04:49] LABS: EOSINOPHILS 1.5 % (0.0-3.0); LYMPHOCYTES 7.3 % (24.0-44.0); MCH 32.3 pg (26.0-34.0); MCHC 33.1 g/dL (28.0-37.0); MCV 97.3 fL (80.0-100.0); PLATELET COUNT 60 thou/uL (150-400); POLYS 84.1 % (36.0-66.0); WBC 7.3 thou/uL (4.0-11.0)
[2021-02-07 04:51] LABS: HEMATOCRIT 19.6 % (42.0-52.0)
[2021-02-07 05:05] LABS: PROTIME 50.3 Seconds (9.3-11.4)
[2021-02-07 05:07] LABS: ALBUMIN 3.2 g/dL (3.4-5.0); CREATININE 4.2 mg/dL (0.7-1.3); INR 4.98; PHOSPHORUS 4.2 mg/dL (2.5-4.9); POTASSIUM 3.7 mmol/L (3.5-5.1); TOTAL BILIRUBIN 1.5 mg/dL (0.2-1.0); TOTAL PROTEIN 5.8 g/dL (6.4-8.2)
--- NOTE | 2021-02-07 06:25 | NUR ---
ASSUMED CARE OF PATIENT AT 1900. PATIENT IN SIGNIFICANT PAIN. ALLEVIATED BY PRN MED. CRITICIAL LABS CALLED TO DR ARVIZU, ORDERS RECIEVED TO TRANSFUSE 1 UNIT OF BLOOD AND GIVE 5 OF VITAMIN K. NOT PROGRESSING TOWARDS POC GOALS.
--- NOTE | 2021-02-07 08:00 | NUR ---
CALLED DR. HARRIS AND STATED CARDIOLOGY CONSULT HAD NEVER BEEN CALLED. JUST WANTS A 12 LEAD EKG FOR NOW.
[2021-02-07 14:10] LABS: HEMATOCRIT 26.1 % (42.0-52.0)
[2021-02-07 14:15] LABS: HEMOGLOBIN 8.7 gm/dL (14.0-18.0)
[2021-02-08] VITALS (22 sets, daily range): BP systolic 112–158; BP diastolic 40–59
--- NOTE | 2021-02-08 03:54 | NUR ---
ASSUMED CARE OF PATIENT AT 1900. PATIENT VERY DROWSY, DEPRESSED. REMAINS IN CHAIR TO SLEEP. AROUSABLE. DECLINED PAIN MEDS THIS SHIFT. NOT PROGRESSING TOWARDS POC GOALS.
[2021-02-08 05:47] LABS: ALBUMIN 3.4 g/dL (3.4-5.0); CALCIUM 8.5 mg/dL (8.5-10.1); CREATININE 3.9 mg/dL (0.7-1.3)
[2021-02-08 05:48] LABS: INR 4.2; PROTIME 42.8 Seconds (9.3-11.4)
--- NOTE | 2021-02-08 07:16 | EKG ---
[address] [address] ELECTROCARDIOGRAM REPORT Name: DIMPLE ORTIZ Room #: 247- ADM IN M.R.#: [id number] Admission: 02/03/21 Attend Phys: Joshua Eden MD Discharge: Date of : 39 Report #: [id number] [facility] Test Date: 2021-02-05 Test Time: 16:26:20 Pat Name: DIMPLE ORTIZ Department: Room: [facility] Gender: M Accounting Teacher: FSCHWALBE : 1940 Requested By: Joshua Eden Order Number: [id number] MD: Hardeep Fraser Measurements Intervals [place] Rate: 60 P: [place]: QRS: 57 QRSD: 109 T: -4 QT: 441 QTc: 441 Interpretive Statements Atrial fibrillation Compared to ECG 02/03/2021 11:48:29 Sinus rhythm no longer present First degree AV block no longer present Electronically Signed On 02-08-2021 7:16:21 CDT by Hardeep Fraser [email or web address] <ELECTRONICALLY SIGNED> By: Hardeep Fraser MD, [facility] 02/08/21 0716 1626 1626 Hardeep Fraser MD, [facility] /EPI
--- NOTE | 2021-02-08 07:23 | EKG ---
[address] [address] ELECTROCARDIOGRAM REPORT Name: DIMPLE ORTIZ Room #: 247-P ADM IN M.R.#: [id number] Admission: 02/03/21 Attend Phys: Joshua Eden MD Discharge: Date of : 39 Report #: [id number] [facility] Test Date: 2021-02-07 Test Time: 08:48:03 Pat Name: DIMPLE ORTIZ Department: Room: 247 P Gender: M Field Seismologist: : 1940 Requested By: Joshua Eden Order Number: [id number] MD: Hardeep Fraser Measurements Intervals [place] Rate: 65 P: -75 [place]: 185 QRS: 54 QRSD: 99 T: -38 QT: 494 QTc: 514 Interpretive Statements Sinus or ectopic atrial rhythm Borderline T abnormalities, inferior leads Prolonged QT interval Compared to ECG 02/05/2021 16:26:20 Ectopic atrial rhythm now present T-wave abnormality now present Prolonged QT interval now present Atrial fibrillation no longer present Electronically Signed On 02-08-2021 7:23:21 CDT by Hardeep Fraser [email or web address] <ELECTRONICALLY SIGNED> By: Hardeep Fraser MD, FAC 02/08/21 0723 0848 Hardeep Fraser MD, [facility] /EPI
--- NOTE | 2021-02-08 16:28 | NUR ---
PT ADMITTED RELATED TO STARR, HYPOTENSION, ELEVATED INR, HYPOGLYCEMIA. CM REVIEWED CHART AND SPOKE WITH CARE TEAM. PT HAD BEEN HOSPITALISED HERE 01/21-01/28 AND DISCHARGED HOME WITH [facility]. LOOKS THOUGH CM HAD SPOKEN WITH SON ABOUT HOSPICE CARE UPON DC AND THAT SON HAD EXPRESSED INTERESTED IN SKILLED REHAB AND WAS GIVEN A LIST TO REVIEW. PT GETTING BLOOD THIS DAY. CM FOLLOWING REGARDING DC PLANNING.
--- NOTE | 2021-02-08 16:44 | NUR ---
ASSUMED CARE AT 0700. PATIENT NOT PROGRESSING TOWARDS THE PLAN OF CARE. DAUGHTER TO VISIT. DR. MARTIN INFORMED THIS RN THAT ONCE THE DAUGHTER FINISHES HER VISIT, PATIENT CAN BE PLACED UNDER COMFORT CARE. DAUGHTER HAS YET TO VISIT.
--- NOTE | 2021-02-08 19:48 | NUR ---
Grandchildren Zeferino and Kami, to bedside at 1900 from 1930. Updated on patient status and plan of care.
[2021-02-09] VITALS (17 sets, daily range): BP systolic 103–157; BP diastolic 34–65
[2021-02-09 03:14] LABS: HEMATOCRIT 26.6 % (42.0-52.0); HEMOGLOBIN 8.6 gm/dL (14.0-18.0); MCH 31.4 pg (26.0-34.0); MCHC 32.2 g/dL (28.0-37.0); MCV 97.6 fL (80.0-100.0); RBC 2.73 mil/uL (4.50-6.00); RDW 16.2 % (10.5-14.5); WBC 7.5 thou/uL (4.0-11.0)
[2021-02-09 03:22] LABS: INR 4.33
[2021-02-09 03:26] LABS: ALBUMIN 3.3 g/dL (3.4-5.0); CALCIUM 8.5 mg/dL (8.5-10.1); CREATININE 4.2 mg/dL (0.7-1.3); PHOSPHORUS 5.4 mg/dL (2.5-4.9); POTASSIUM 4.1 mmol/L (3.5-5.1); TOTAL BILIRUBIN 1.2 mg/dL (0.2-1.0); TOTAL PROTEIN 6.5 g/dL (6.4-8.2)
--- NOTE | 2021-02-09 07:44 | NUR ---
per chart review, pt. family has decided on comfort measures only. will discontinue OT services at this time.
[2021-02-09 08:10] LABS: BE(vivo) -4.7 mmol/L (-2 to +3); HCO3 23.3 mmol/L (22.0-26.0); PCO2 VENOUS 58.7 mmHg (41.0-51.0); PO2 VENOUS 46.7 mmHg (35.0-45.0)
--- NOTE | 2021-02-09 08:47 | NUR ---
NOTE NURSING NOTES STATE WILL START COMFORT MEASURES AFTER DAUGHTER VISITS. WILL SIGN OFF AT THIS TIME
--- NOTE | 2021-02-09 08:52 | TEE ---
[facility] [place] [address] TRANSESOPHAGEAL ECHOCARDIOGRAM Name: DIMPLE ORTIZ Room #: 247-P ADM IN M.R.#: [id number] Admission: 02/03/21 Attend Phys: Joshua Eden MD Discharge: Date of : 39 Report #: [id number] THIS REPORT FOR: cc: [place] MD, Stanley P. MD Santiago, Patrick MD [facility] ~ APPROVED REPORT Study performed: 02/09/2021 07:39:28 EXAM: Transesophageal Echocardiogram Patient Location: ICU Room #: [facility] Status: routine BSA: 2.38 HR: 54 bpm BP: 108/35 mmHg Rhythm: NSR Other Information Study Quality: Good Indications Enterococcal bacteremia. Rule out endocarditis. Sepsis. Hx: CABG, CHF, PAF, COVID-19, HTN. Procedure After obtaining informed consent, patient underwent transesophageal echo in the ICU. Type of Sedation : Conscious Sedation Sedation was administered by RN. Sony. Sedation start time: 739 Case end Time: 741 Sedation was achieved intravenously with: Versed (2) Transesophageal probe was inserted and advanced into esophagus without difficulty by Hardeep Fraser MD. Echo enhancement indication: R/O Septal defect. Echo enhancement agent administered: Agitated Saline The DEBORAH was performed without complications. Throughout the procedure, the blood pressure, pulse oximetry, cardiac rhythm, and rate were monitored. The patient tolerated the procedure without adverse effects. Recovery from conscious sedation was uneventful and vital signs were stable. [facility] [address] [place] [address] TRANSESOPHAGEAL ECHOCARDIOGRAM Name: DIMPLE ORTIZ Room #: 247-P [facility] IN ..#: [id number] Admission: 02/03/21 Attend Phys: Joshua Eden MD Discharge: Date of : 39 Report #: [id number] Left Ventricle The left ventricle is normal size. There is normal LV segmental wall motion. There is normal left ventricular wall thickness. Left ventricular systolic function is normal. LVEF is 60-65%. Right Ventricle The right ventricle is normal size. The right ventricular systolic function is normal. Atria Moderate to severe biatrial enlargement. No thrombus is visualized in the left atrium or appendage. Positive bubble study showing small PFO with right to left shunting. Aortic Valve Aortic valve is trileaflet. Leaflets are mildly thickened and clacified. Trace aortic regurgitation. There is no aortic valvular stenosis. Mitral Valve The mitral valve is normal in structure. Mild mitral annular calcification. Mild mitral regurgitation. Tricuspid Valve The tricuspid valve is normal in structure. Moderate to severe tricuspid regurgitation. Pulmonic Valve The pulmonary valve is normal in structure. Trace pulmonic regurgitation. Great Vessels The aortic root is normal in size. Pericardium There is no pericardial effusion. <Conclusion> Consent previously obtained yesterday from his son with whom I discussed the procedure Patient obtunded at baseline, 2 mg of Versed was given. Esophageal probe was advanced without difficulty. Left atrial appendage, moderate size, no obvious mass or clot detected. Moderate biatrial enlargement Mild mitral valve insufficiency [facility] [address] [place] [address] TRANSESOPHAGEAL ECHOCARDIOGRAM Name: ANGELELISADIMPLE J Room #: 247-P [facility] IN [facility]#: [id number] Admission: 02/03/21 Attend Phys: Joshua Eden MD Discharge: Date of : 39 Report #: [id number] Tricuspid aortic valve with minimal calcification. No evidence of valvular dysfunction detected. Tricuspid valve well seen with evidence of moderate severe central insufficiency No obvious mass or vegetation detected in the valves. Normal left ventricle size/wall thickness ejection fraction 60% Small PFO detected by bubble study. No pericardial effusion. Minimal calcification throughout the aorta. The patient tolerated procedure well <ELECTRONICALLY SIGNED> By: Hardeep Fraser MD, FACC 02/09/21 0851 0 Hardeep Fraser MD, FACC /INF
--- NOTE | 2021-02-09 09:23 | NUR ---
discussed during am rounds, snf vs comfort care?. pt is no requiring use of bipap. nuclear med called bedside nurse and is wanting to know if he is going comfort care rt test that was order have to be sent out and used with in curtain time frame and not sure if needed if he is going comfort care. he would not be able to go skilled or tolerate therapy rt his condition. cm passed on information to hospitalist to follow up with nuclear med.
[2021-02-09 09:36] LABS: BE(vivo) -2.4 mmol/L (-2 to +3); PCO2 VENOUS 56.9 mmHg (41.0-51.0); PO2 VENOUS 46.3 mmHg (35.0-45.0)
--- NOTE | 2021-02-09 10:17 | NUR ---
Assumed care at 0700, assessment and vital signs completed per ICU protocol. Dr. Fraser performed bedside DEBORAH this morning. Pt placed on bipap by RT based on venous BG, Dr. Cooney consulted. RN will continue to monitor.
--- NOTE | 2021-02-10 05:29 | NUR ---
PATIENT ON CHOCOLATE PACKER ORDERS. REMAINS AFEBRILE. VSS. ON 2L VIA NC. PT HAS TX ORDERS TO 4TH FLOOR. REPORT CALLED TO 4S RN. PATIENT OFF THE UNIT AT APPROX 0510. ALL QUESTIONS ANSWERED.
[2021-02-10 05:44] VITALS: BP 153/68
--- NOTE | 2021-02-10 05:51 | NUR ---
PT TRANSFERRED FROM ICU AT 0510 UNABLE TO OBEY COMMAND BUT RESPOND TO PAINFUL STIMULI. BLOOD TINGED COLOR OUTPUT URINE NOTED. WOUND DRESSING IN LEFT ARM. VITAL SIGNS CHECKED. PT ON COMFORT CARE. WILL CONT TO MONITOR.
[2021-02-10 07:05] VITALS: BP 130/50
--- NOTE | 2021-02-10 10:43 | NUR ---
ON-GOING ASSESSMENT: CM REVIEWED CHART. PT TRANSFERED FROM ICU TO AND IS NOW ON COMFORT CARE. PT IS ON 2L OXYGEN. CM SPOKE WITH PATIENTS SON LAURA TO UPDATE HIM. HE REPORTS HE WAS UNAWARE THAT PT MOVED UNITS. CM DISCUSSED THAT PATIENT COULD TRANSITION TO POSSIBLE HOSPICE HOUSE IF HE IS INTERSTED AND AN EVAL WOULD HAVE TO BE COMPLETED TO SEE IF HE WOULD BE ACCEPTED. SON REPORTS HE WANTS TO SEE HOW PATIENT DOES THE NEXT DAY OR SO AND WILL FOLLOW UP WITH CM AFTER THINKING ABOUT IT. CM WILL CONTINUE TO FOLLOW TO ASSIST NEEDED.
--- NOTE | 2021-02-10 11:58 | NUR ---
ASSUMED PT CARE AROUND 0700. PT AWAKE ON PAINFUL STIMULI. O2/2L/NC.IV TRIPPLE LUMEN RT IJ, DRESSING CHANGE DONE TODAY AROUND 0900 IT WAS BLEEDING. NPO. RAMIREZ IN PLACE WITH BLOOD TINGED URINE.DRESSING ON LEFT ARM FROM SKIN TEAR. GENERALIZED SWELLING. NO CODE, HOSPICE AND PALLIATIVE CARE. FALL PRECAUTION IN PLACE. WILL CONTINUE TO MONITOR.
[2021-02-10 16:10] VITALS: BP 138/51
[2021-02-10 19:19] VITALS: BP 148/63
--- NOTE | 2021-02-10 22:45 | NUR ---
PT WITH EYES CLOSED. NOT RESPONSIVE.MILD BLEDDING NOTED TO RIJ SITE.CONSIDERABLE BLEEDING NOTED AROUND PENIS.GENERALISED ANASARCA.ON FOR COMFORT.CHEST CONGESTION.PT APPEARS COMFORTABLE AT THIS TIME. WILL CONTINUE TO PROVIDE COMFORT.
--- NOTE | 2021-02-11 08:08 | NUR ---
ASSUMED PT CARE AROUND 0700. PT SLEEPING, SLIGHTLY AWAKE ON PAINFUL STIMULI.ON 2L/O2/NC.RAMIREZ CATHETER IN PLACE. NO CODE/ COMFORT AND PALLIATIVE CARE. IV TRIPPLE LUMEN RT IJ. FALL PRECAUTION IN PLACE. ORAL CARE GIVEN. NPO. WILL CONTINUE TO MONITOR.
--- NOTE | 2021-02-11 12:10 | NUR ---
on-going assessment: CM REVIEWED CHART. PT REMAINS ON COMOFRT CARE. CM SPOKE WITH PATIENTS SON LAURA AND DISCUSSED OPTION OF POSSIBLE TRANSFER TO HOSPICE HOUSE. SON REPORTS HE PREFERS THAT PATIENT STAY HERE AND THOUGHT HE WOULD STAY HERE THE REMAINING ON HIS TIME. CM DISCUSSED WE CAN REVISIT HOW PATIENT IS DOING TOMORROW. ATTENDING ALSO SPOKE WITH PATIENTS SON . CM UPDATED CM DIRECTOR. CM WILL CONTINUE TO FOLLOW TO ASSIST NEEDED. PT WILL REMAIN ON COMFORT CARE HERE IN HOSPITAL AT THIS TIME.
[2021-02-11 18:55] VITALS: BP 185/70
--- NOTE | 2021-02-11 19:43 | NUR ---
Assumed pt care at 1630.Pt in bed sleeping but sometimes moaning and sound congested .Oral care and suction done.Rijtl drsg change done.Family at bs. Repositioned pt for comfort.Report off to kevin barrow.
--- NOTE | 2021-02-11 23:45 | NUR ---
PT ASSESSED AT START OF SHIFT. EYES CLOSED AND RESTING IN BED. SUCTION PROVIDED RED COLOR OUT PUT. PAIN MEDS GIVEN DUE TO PT COUGHING AND MOANING. ON 2L OF O2. RT IJ DRESSING CHANGED DUE TO BLEEDING. PT REPOSITIONED FOR COMFORT. FOLLEY INTACT AND DARK RED URINE NOTED. ON COMFORT CARE. PT REPOSITIONED. WILL CONT TO MONITOR TILL EOS.
[2021-02-12 04:38] VITALS: BP 103/36
[2021-02-12 07:47] VITALS: BP 128/37
--- NOTE | 2021-02-12 12:49 | NUR ---
ON-GOING ASSESSMENT: CM REVIEWED CHART AND SPOKE WITH ATTENDING WELL PATIENTS KAITLIN SANCHEZ AND CM DIRECTOR. PT REMAINS ON COMOFRT CARE AT THIS TIME. SON REPORTS HE WAS HOPEFUL PT WOULD BE ABLE TO REMAIN AT THE HOSPITAL FOR THE TIME HE HAS LEFT. CM DISCUSSED AGAIN THE POSSIBLE OPTION OF POSSIBLE TRANSFER TO HOSPICE HOUSE IF HE IS AGREEABLE. SON REPORTS HE PREFERS PT TO STAY HERE IF POSSIBLE AND REQUESTED TO TALK TO PHYSICIAN. CM NOTIFIED ATTENDING. CM SPOKE WITH CM DIRECTOR WELL AND PLAN IS FOR PATIENT TO REMAIN IN THE HOSPITAL OVER THE WEEKEND AND THEN LOOK AT POSSIBLE TRANSFER TO THE HOSPICE HOUSE ON MONDAY. SON REPORTS HE MAY BE INTESTED IN THE [facility] IT IS CLOSEST TO HIS HOME. CM NOTIFIED [facility] [phone] AND FAXED REFERRAL. NO WEEKEND DISCHARGE ANTICIPATED. CM WILL FOLLOW UP WITH PATIENTS KAITLIN SANCHEZ [facility] ON MONDAY. CM WILL CONTINUE TO FOLLOW TO ASSIST NEEDED.
[2021-02-12 16:40] VITALS: BP 42/16; BP 84/40
[2021-02-12 17:52] VITALS: BP 50/20
--- NOTE | 2021-02-12 18:04 | NUR ---
PRIMARY RN JESSICA NOTIFIED REGARDING VS AND RECOMMENDED TO NOTIFY FAMILY REGARDING PT'S CONDITION.
--- NOTE | 2021-02-12 20:03 | NUR ---
ASSUMED CARE OF PT THIS MORNING AT 0700 AND PT WAS ADMITTED FOR A FALL WITH FX TO THE RIGHT SCALPULA. PT IS A/O X2 AND IS CONFUSED MOST OF THE TIME. PT HAS BEEN STAYING IN BED AND USING THE URINAL. SKIN W/D/P, WITH BRUISING AROUND THE RIGHT SHOULDER AND BACK. LIDOCAINE PATCH ON RIGHT UPPER ARM. NO TENTING, AND IS INTACT. CR< 3SEC X4, DISTAL PULSES PRESENT , 2+ X4. LUNGS CLEAR ALL [place], EYES PERRLA. ASSESSMENT OTHERWISE UNREMARKABLE.
== END 2021-02-12 18:18 | DRG 871 ==
LOC: ER 10:52 → ICU 16:46 → EROBS 16:46 → ICU 20:30 → 4S 02-10 05:43
PROVIDERS: Hospitalist; Nurse Practitioner; Physician Assistant; Specialist; ADMIT Hospitalist; ATTEND Hospitalist
PROC: 30233M1 Transfusion of Nonautologous Plasma Cryoprecipitate into Peripheral Vein, Percutaneous Approach (ICD-10-PCS; 2021-02-03)
PROC: 30233N1 Transfusion of Nonautologous Red Blood Cells into Peripheral Vein, Percutaneous Approach (ICD-10-PCS; 2021-02-05)
PROC: 5A09357 Assistance with Respiratory Ventilation, Less than 24 Consecutive Hours, Continuous Positive Airway Pressure (ICD-10-PCS; principal; 2021-02-09)
PROC: 5A09357 Assistance with Respiratory Ventilation, Less than 24 Consecutive Hours, Continuous Positive Airway Pressure (ICD-10-PCS; 2021-02-10)
DX: A41.81 Sepsis due to Enterococcus (principal); I50.23 Acute on chronic systolic (congestive) heart failure; G92 Toxic encephalopathy; J96.01 Acute respiratory failure with hypoxia; R65.21 Severe sepsis with septic shock; N17.9 Acute kidney failure, unspecified; I42.9 Cardiomyopathy, unspecified; I13.0 Hypertensive heart and chronic kidney disease with heart failure and stage 1 through stage 4 chronic kidney disease, or unspecified chronic kidney disease; D62 Acute posthemorrhagic anemia; I48.92 Unspecified atrial flutter; N18.9 Chronic kidney disease, unspecified; D69.6 Thrombocytopenia, unspecified; Z51.5 Encounter for palliative care; E11.22 Type 2 diabetes mellitus with diabetic chronic kidney disease; E11.649 Type 2 diabetes mellitus with hypoglycemia without coma; E03.9 Hypothyroidism, unspecified; E78.5 Hyperlipidemia, unspecified; I48.0 Paroxysmal atrial fibrillation; G89.29 Other chronic pain; I25.10 Atherosclerotic heart disease of native coronary artery without angina pectoris; T83.018A Breakdown (mechanical) of other urinary catheter, initial encounter; Z66 Do not resuscitate; M54.5 Low back pain; Y84.8 Other medical procedures as the cause of abnormal reaction of the patient, or of later complication, without mention of misadventure at the time of the procedure; Z86.16 Personal history of COVID-19; Y92.89 Other specified places as the place of occurrence of the external cause; Z79.01 Long term (current) use of anticoagulants; Z95.1 Presence of aortocoronary bypass graft
CPT/HCPCS: 10078; 10102; 10204; 50455; 85076